=== PATIENT | male | born 1995 | race African-American/Black ===

== ENCOUNTER 2018-06-15 15:00 | Outpatient (CLI) | payer MEDICAID ==
[2018-06-16 14:07] LABS: HIV AG/AB 4TH GEN NON-REACTIVE (NON-REACTIVE)
[2018-06-16 15:10] LABS: HEPATITIS C ANTIBODY NON-REACTIVE (NON-REACTIVE)
[2018-06-17 13:57] LABS: HSV 1 IGG TYPE SPECIFIC AB <0.90 index; HSV 2 IGG TYPE SPECIFIC AB <0.90 index
== END 2018-06-15 15:01 | disposition home or self-care (01) ==
LOC: LAB.N 15:00
PROVIDERS: ATTEND Nurse Practitioner
DX: N48.89 Other specified disorders of penis (principal); Z72.51 High risk heterosexual behavior
CPT/HCPCS: 36415; 81599; 86592; 86695; 86696; 86803; 87389; 87491; 87591

== ENCOUNTER 2019-08-04 06:54 | Emergency (ER) | payer MEDICAID ==
[2019-08-04 07:05] VITALS: BP 129/93
--- NOTE | 2019-08-04 07:22 | ED Physician Documentation ---
PD HPI UPPER EXT INJURY - Stated complaint Stated Complaint: RT WRIST PX - Chief complaint Chief Complaint: Trauma Ext - History obtained from History obtained from: Patient - History of Present Illness Location: Right, Wrist Type of injury: Fall Where injury occurred: Home Timing - onset: Yesterday Timing - duration: Days (1) Timing - details: Abrupt onset, Still present Improved by: Rest, Immobilization Worsened by: Moving, Palpating Associated symptoms: No: Weakness, Numbness, Tingling, Swelling Contributing factors: No: Anticoagulated Similar symptoms before: Has not had sx before Recently seen: Not recently seen - Additonal information Additional information: 24-year-old male was on a wheelchair yesterday leaning back when the chair came out from underneath him and he fell backwards onto his outstretched right hand. He initially had some pain in his wrist during the day yesterday the pain became significantly worse at about 3 AM this morning and he has been unable to sleep since. Review of Systems Constitutional: denies: Fever Respiratory: denies: Cough GI: denies: Vomiting Skin: denies: Rash Musculoskeletal: reports: Extremity pain, Joint pain. denies: Neck pain, Back pain, Extremity swelling, Joint swelling Neurologic: denies: Generalized weakness, Focal weakness, Numbness PD PAST MEDICAL HISTORY - Past Medical History Past Medical History: No - Past Surgical History Past Surgical History: No - Present Medications Home Medications: Ambulatory Orders Medication Instructions Recorded Confirmed Hydrocodone/Acetaminophen 1 - 2 each PO Q6H PRN #8 tablet 08/04/19 [Hydrocodon-Acetaminophen 5-325] - Allergies Allergies/Adverse Reactions: Allergies Allergy/AdvReac Type Severity Reaction Status Date / Time No Known Drug Allergies Allergy Verified 08/04/19 07:05 - Social History Does the pt smoke?: No Smoking Status: Never smoker Does the pt drink ETOH?: No Does the pt have substance abuse?: No - Immunizations Immunizations are current?: No Immunizations: No immun - POLST Patient has POLST: No PD ED PE NORMAL - Vitals Vital signs reviewed: Yes (hypertensive) - General General: Alert and oriented X 3, No acute distress, Well developed/nourished, Other (24 y/o male with the right hand motionless is complaining of pain in the wrist. ) - HEENT HEENT: Atraumatic, PERRL, EOMI - Respiratory Respiratory: No respiratory distress - Derm Derm: Normal color, Warm and dry, No rash - Extremities Extremities: No deformity, No edema, Other (There is mild tenderness to a non- swollen right wrist. There is no involvement of the elbow or shoulder and the distal n/v is intact. I am not able to appreciate specific tenderness to the anatomic snuff box. Pain behavior seems out of proportion to physical exam findings. 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, No motor deficit, No sensory deficit, Normal speech Eye Opening: Spontaneous Motor: Obeys Commands Verbal: Oriented GCS Score: 15 - Psych Psych: Normal mood, Normal affect Results - Vitals Vitals: Vital Signs - 24 hr 08/04/19 07:00 Temperature 36.1 C L Heart Rate 80 Respiratory 18 Rate Blood Pressure 129/93 H O2 Saturation 99 Oxygen O2 Source Room air - Rads (name of study) wrist Radiology: Prelim report reviewed (Impression: No acute fracture or dislocation.), EMP read indepedently, See rad report Procedures - Splint (location) right wrist Splint applied by: Tech Type of splint: Fiberglass, Volar cock up Other: Patient tolerated well, No complications, Neurovascular intact, Good alignment PD MEDICAL DECISION MAKING - ED course Complexity details: reviewed results, re-evaluated patient, considered d ifferential, d/w patient, d/w family ED course: 24 y/o male with a sprained wrist is placed into a volar splint and will follow up with Ortho as needed. Departure - Departure Disposition: 01 Home, Self Care Clinical Impression: Right wrist sprain Qualifiers: Encounter type: initial encounter Qualified Code(s): S63.501A - Unspecified sprain of right wrist, initial encounter Condition: Stable Instructions: ED Sprain Wrist Follow-Up: [facility] [Provider Group] Prescriptions: Hydrocodone/Acetaminophen [Hydrocodon-Acetaminophen 5-325] 1 - 2 each PO Q6H PRN #8 tablet PRN Reason: pain Discharge Date/Time: 08/04/19 08:01
[2019-08-04] MEDS ORDERED: ACETAMINOPHEN 325 MG TABLET PO STA (07:27)
--- NOTE | 2019-08-04 07:50 | XRAY Report ---
Reason: injury/fall Procedure Date: 08/04/2019 Accession Number: [id number] / [id number] Procedure: XR - Wrist 3 View RT CPT Code: FULL RESULT: EXAM: RIGHT WRIST RADIOGRAPHY EXAM DATE: 08/04/2019 07:20 AM. CLINICAL HISTORY: Injury, pain COMPARISON: None. TECHNIQUE: 3 views. FINDINGS: Bones: Bony mineralization appears appropriate. No acute fracture or focal osseous destruction. Joints: Alignment and joint spaces appear maintained. Soft Tissues: No radiopaque foreign body. Mild soft tissue swelling. IMPRESSION: No acute fracture or dislocation. RADIA
== END 2019-08-04 08:01 | disposition home or self-care (01) ==
LOC: ED 06:54
DX: S63.501A Unspecified sprain of right wrist, initial encounter (principal); W05.0XXA Fall from non-moving wheelchair, initial encounter; Y92.009 Unspecified place in unspecified non-institutional (private) residence as the place of occurrence of the external cause
CPT/HCPCS: 29125; 73110; 99283; 99284; A9270